=== PATIENT | female | born 1985 ===

== ENCOUNTER 2020-01-04 12:43 | Outpatient (REF) | payer OTHER, SELFPAY | END 2020-01-04 12:44 | disposition home or self-care (01) | LOC: HO.LAB 12:43 | PROVIDERS: Visit Provider Internal Medicine | DX: Z20.828 Contact with and (suspected) exposure to other viral communicable diseases (principal) | CPT/HCPCS: 87635 ==

== ENCOUNTER 2020-12-25 08:22 | Emergency (ER) | payer OTHER, SELFPAY ==
--- NOTE | ~2020-12-25 | US_ITS ---
EXAMINATION: US OBSTETRICAL ULTRASOUND CLINICAL INFORMATION: Bleeding and pain. Patient is 6 weeks . COMPARISON: None. LMP: 11/13/2020. Gestational age by maternal dates is 6 weeks 0 days. Estimated date of delivery by maternal dates is 08/20/2021. TECHNIQUE: Transabdominal first trimester OB ultrasound FINDINGS: The uterus is retroverted. There is a single intrauterine gestational sac with visible yolk sac, embryo/fetus, and cardiac activity. HR: 95 beats per minute. CRL (crown rump length): 0.15 to 0.2 cm. This is too small to calculate gestational age. Mean sac diameter suggests gestational age of approximately 6 weeks which agrees with the LMP. There is no significant subchorionic hemorrhage or hematoma. There is a small uterine fibroid measuring 7 x 5 x 9 mm anterior lower uterus. The right ovary measures 3.4 x 1.1 x 1.2 cm and is normal-appearing. The left ovary measures 4 x 1.9 x 3.5 cm. There are 3 left ovarian cysts. There is a 2.1 x 1.5 x 1.3 cm complex cyst peripheral vascularity probably representing a corpus luteum. There are simple 1.5 x 1.4 x 1.5 cm and 1.8 x 1.5 x 2.1 cm cysts. There is a small amount of fluid in the pelvis. US/US OB pelvic and transvaginal IMPRESSION: Intrauterine gestational sac, pole and yolk sac. [place]-rump length is too small to calculate gestational age.
[2020-12-25 08:28] VITALS: BP 111/66; PULSE 79; RESP 18; TEMP 36.8; O2SAT 100; BMI 28.6
[2020-12-25 08:51] LABS: Appearance Urine HAZY; Color Urine YELLOW; Glucose Urine UA NEG (NEG); Leukocyte Esterase Urine NEG (NEG); Nitrite Urine NEG (NEG); UACC Culture Trigger NO; Urine Blood 2+ (NEG); Urine Ketones NEG (NEG); Urine Protein NEG (NEG-TRACE)
--- NOTE | 2020-12-25 08:54 | ED_ITS ---
HPI - General Chief complaint: Vaginal Bleeding Stated complaint: 6WK PREG CRAMPING RED DISCHARGE Time Seen by Provider: 12/25/20 08:50 Source: patient Mode of arrival: ambulatory Limitations: no limitations History of Present Illness HPI Narrative: 35 y/o female who is 6 weeks presents to the ER with pelvic pain worse on the left side for the last 2 days along with some spotting that started yesterday. She also reports lower back pain. She is very nervous because she had a miscarriage at around 12 weeks gestation and required a D&C in the past. She also had intercourse 2 days ago and had some pain with that. She denies fevers. She denies passage of blood clots or tissue. She re ports her blood type is B positive. MD Complaint: abdominal pain and vaginal bleeding Onset (ago): day(s) (2) Pain Consistency: intermittent Location: pelvis Severity: moderate Severity scale (1-10): 5 Quality: Cramping and Aching Relieving factors: none Exacerbating factors: none Associated symptoms: vaginal bleeding and dyspareunia Vaginal discharge: none Vaginal bleeding: light Date of Last Menstrual Period: 11/13/20 Patient : Yes Number of Weeks : 6 OB History - Previous Pregnancies: miscarriage care: followed by OB Related Data : 4 Para: 2 Total number of abortions (spontaneous and elective): 1 Allergies Allergy/AdvReac Type Severity Reaction Status Date / Time No Known Allergies Allergy Verified 12/25/20 08:27 [No Known Allergies*] Review of Systems Review of Systems: Constitutional: No Fever, No Chills ENT/Mouth: No sore throat Cardiovascular: No Chest Pain, No SOB Gastrointestinal: No Nausea, No Vomiting, No Diarrhea, No abdominal Pain, No Hematochezia, No Melena Genitourinary: No Dysuria, No Urinary Frequency, + Hematuria, +vaginal spotting, +pelvic pain Musculoskeletal: No joint pain, No Myalgias Skin: No Skin Lesions, No rash Neuro: No Weakness, No Numbness, No Dizziness, No Headache Psych: + Anxiety/Panic, No Depression Heme/Lymph: No Bruising, No Lymphadenopathy Endocrine: No Polyuria, No Polydipsia PMFSH Past Medical History Medical History (Updated 12/25/20 @ 11:30 by BOYD Tapia) Patient denies medical problems : 4 Para: 2 Total number of abortions (spontaneous and elective): 1 Date of Last Menstrual Period: 11/13/20 Social History Social History Alcohol intake: never Patient Tobacco Use Status: Never used Tobacco Use of substances other than those prescribed or required for medical reasons: No Advance Directives: No Advance Directives Information Provided: Yes Patient : Yes Physical Exam Vital Signs: Vital Signs: Last Vital Signs Temp 98.3 F 12/25/20 08:28 Pulse 79 12/25/20 08:28 Resp 18 12/25/20 08:28 BP 111/66 12/25/20 08:28 Pulse Ox 100 12/25/20 08:28 Body Mass Index 28.6 Appearance: Alert. Oriented X3. No acute distress. Eyes: Pupils equal, round and reactive to light. ENT: Pharynx normal. Neck: Normal inspection. Neck supple. CVS: Normal heart rate and rhythm. Pulses normal. Respiratory: No respiratory distress. Breath sounds normal. Abdomen: Soft with mild lower abdominal, suprapubic tenderness more on the left than the right. No guarding or rebound. Normal bowel sounds. Pelvic exam deferred. Skin: Skin warm and dry. Normal skin color. Normal skin turgor. No rashes. Extremities: No lower extremity edema. Neuro: Oriented X 3. No motor deficit. No sensory deficit. Course Course Course Narrative: 35-year-old female who is currently 6 weeks presents to the ER with some pelvic pain, back pain, and vaginal spotting. No passage of blood clots or tissue. She is currently having minimal pain but reports it is more on the left side than the right. She has history of miscarriage in the past. She is declining pelvic exam at this time, she is worried about making any bleeding worse. She is agreeable to pelvic ultrasound however. Concern for possible ectopic . Will check serum hCG and pelvic ultrasound. No active bleeding right now. Reevaluation(s) Reevaluation #1: Beta hCG is 13,000. Pelvic ultrasound showing intrauterine . She is wanting to leave. We discussed the possibility of a threatened miscarriage in need for follow-up with her OB. She expressed understanding and will go to her OB tomorrow. Recommended repeating her hCG levels. Patient stable for discharge with close outpatient follow-up. MDM - OB/Uterine Contractions Lab Data Result diagrams: 12/25/20 09:41 12/25/20 09:41 Labs: Lab Results 12/25/20 12/25/20 12/25/20 Range/Units 08:36 09:41 09:41 WBC 5.7 (4.8-10.8) X10*3/uL RBC 4.78 (4.20-5.50) X10*6/uL Hgb 12.2 (12.0-16.0) g/dl Hct 37.7 (37-47) % MCV 78.9 L (80-98) fL MCH 25.5 L (27.0-33.0) pg MCHC 32.4 (31.0-35.0) g/dl RDW 12.6 (11.0-16.0) % Plt Count 274 (160-400) X10*3/uL MPV 11.0 (9.4-12.3) fL Immature Gran % (Auto) 0.5 H (0.0-0.4) % Neut % (Auto) 61.5 (45-73) % Lymph % (Auto) 29.2 (20-40) % [place] % (Auto) 6.1 (2-11) % Eos % (Auto) 2.3 (0-4) % Baso % (Auto) 0.4 (0-2) % Lymph # (Auto) 1.7 (1.2-4.9) X10*3/uL [place] # (Auto) 0.4 (0.1-1.2) X10*3/uL Eos # (Auto) 0.1 (0.0-0.4) X10*3/uL Baso # (Auto) 0.0 (0.0-0.2) X10*3/uL Abs Immat Gran (auto) 0.03 (0.00-0.03) X10*3/uL Absolute Neuts (auto) 3.5 (2.0-8.3) X10*3/uL Absolute Nucleated RBC 0.000 (0.0-0.012) X10*3/uL Nucleated RBC % (auto) 0.0 (0.0-0.2) /100WBC Sodium 137 (135-145) mmol/L Potassium 4.4 (3.3-5.1) mmol/L Chloride 107 (96-108) mmol/L Carbon Dioxide 24 (22-29) mmol/L Anion Gap 10 L (12-20) BUN 10 (9-16) mg/dL Creatinine 0.73 (0.5-1.4) mg/dL Estim Creat Clear Calc 111.0 Estimated GFR > 60 Random Glucose 92 (60-115) mg/dL Calcium 9.2 (8.4-10.2) mg/dL Beta HCG, Quant 64596 mIU/mL Urine Color YELLOW Urine Appearance HAZY Urine pH 6.0 (5.0-8.0) Ur Specific [place] 1.020 (1.005-1.025) Urine Protein NEG (NEG-TRACE) MG/DL Urine Glucose (UA) NEG (NEG) MG/DL Urine Ketones NEG (NEG) MG/DL Urine Blood 2+ H (NEG) Urine Nitrite NEG (NEG) Ur Leukocyte Esterase NEG (NEG) Urine RBC 15-29 H (0) /HPF Urine WBC 1-4 (0-4) /HPF Ur Squamous Epith Cells 1+ /LPF Urine Bacteria TRACE /LPF Urine Mucus 2+ /LPF Urine Yeast 1+ /HPF Blood Type 12/25/20 Range/Units 09:41 WBC (4.8-10.8) X10*3/uL RBC (4.20-5.50) X10*6/uL Hgb (12.0-16.0) g/dl Hct (37-47) % MCV (80-98) fL MCH (27.0-33.0) pg MCHC (31.0-35.0) g/dl RDW (11.0-16.0) % Plt Count (160-400) X10*3/uL MPV (9.4-12.3) fL Immature Gran % (Auto) (0.0-0.4) % Neut % (Auto) (45-73) % Lymph % (Auto) (20-40) % [place] % (Auto) (2-11) % Eos % (Auto) (0-4) % Baso % (Auto) (0-2) % Lymph # (Auto) (1.2-4.9) X10*3/uL [place] # (Auto) (0.1-1.2) X10*3/uL Eos # (Auto) (0.0-0.4) X10*3/uL Baso # (Auto) (0.0-0.2) X10*3/uL Abs Immat Gran (auto) (0.00-0.03) X10*3/uL Absolute Neuts (auto) (2.0-8.3) X10*3/uL Absolute Nucleated RBC (0.0-0.012) X10*3/uL Nucleated RBC % (auto) (0.0-0.2) /100WBC Sodium (135-145) mmol/L Potassium (3.3-5.1) mmol/L Chloride (96-108) mmol/L Carbon Dioxide (22-29) mmol/L Anion Gap (12-20) BUN (9-16) mg/dL Creatinine (0.5-1.4) mg/dL Estim Creat Clear Calc Estimated GFR Random Glucose (60-115) mg/dL Calcium (8.4-10.2) mg/dL Beta HCG, Quant mIU/mL Urine Color Urine Appearance Urine pH (5.0-8.0) Ur Specific [place] (1.005-1.025) Urine Protein (NEG-TRACE) MG/DL Urine Glucose (UA) (NEG) MG/DL Urine Ketones (NEG) MG/DL Urine Blood (NEG) Urine Nitrite (NEG) Ur Leukocyte Esterase (NEG) Urine RBC (0) /HPF Urine WBC (0-4) /HPF Ur Squamous Epith Cells /LPF Urine Bacteria /LPF Urine Mucus /LPF Urine Yeast /HPF Blood Type B Positive Procedures Perimortem Number of Weeks : 6 Discharge Plan Discharge Clinical Impression: Threatened Patient Disposition: Home, Self-Care Instructions: Threatened Miscarriage (ED) Additional Instructions: Your ultrasound today showed a gestational sac within the uterus. Because your are bleeding and having pain there still is a possibility that you are having a miscarriage. This could also be normal 1st trimester bleeding. It is important that you follow-up with your OB. Your hormone today was 13,661. This number needs to be trended in the next 48 hours. Your OB can do this for you. No sexual intercourse. If you develop worsening symptoms call 911 or come back to the ER for further evaluation. Stand Alone Forms: Work/School Release Interventions: ED Discharge Assessment Last Done: 12/25/20 11:42 Discharge Date/Time: 12/25/20 11:42
[2020-12-25 09:01] LABS: Bacteria Urine TRACE /LPF
[2020-12-25 09:02] LABS: Squamous Epithelial Cell Urine 1+ /LPF
[2020-12-25 09:03] LABS: Mucus Urine 2+ /LPF
[2020-12-25 09:50] LABS: MANUAL DIFF FLAG NO
[2020-12-25 09:57] LABS: Basophils Percent Auto 0.4 % (0-2); Eosinophils Absolute Auto 0.1 X10*3/uL (0.0-0.4); Eosinophils Percent Auto 2.3 % (0-4); Hematocrit 37.7 % (37-47); Hemoglobin 12.2 g/dl (12.0-16.0); Imm Gran Abs Auto 0.03 X10*3/uL (0.00-0.03); Imm Gran Pct Auto 0.5 % (0.0-0.4); Lymphocytes Absolute Auto 1.7 X10*3/uL (1.2-4.9); Lymphocytes Percent Auto 29.2 % (20-40); Mean Corpuscular HGB Conc 32.4 g/dl (31.0-35.0); Mean Corpuscular Hemoglobin 25.5 pg (27.0-33.0); Mean Corpuscular Volume 78.9 fL (80-98); Monocytes Absolute Auto 0.4 X10*3/uL (0.1-1.2); Monocytes Percent Auto 6.1 % (2-11); Neutrophils Absolute Auto 3.5 X10*3/uL (2.0-8.3); Neutrophils Percent Auto 61.5 % (45-73); Platelet Count 274 X10*3/uL (160-400); Red Blood Count 4.78 X10*6/uL (4.20-5.50); Red Cell Distribution Width 12.6 % (11.0-16.0); White Blood Count 5.7 X10*3/uL (4.8-10.8)
[2020-12-25 10:19] LABS: Anion Gap 10 (12-20); Blood Urea Nitrogen 10 mg/dL (9-16); Calcium 9.2 mg/dL (8.4-10.2); Carbon Dioxide 24 mmol/L (22-29); Chloride 107 mmol/L (96-108); Estimated Glomerular Filt Rate > 60; Glucose Random 92 mg/dL (60-115); Potassium 4.4 mmol/L (3.3-5.1); Sodium 137 mmol/L (135-145)
[2020-12-25 10:27] LABS: HCG Quantitative 13661 mIU/mL
== END 2020-12-25 11:42 | disposition home or self-care (01) ==
PROVIDERS: Physician Assistant; Emergency Provider Emergency Medicine; PCP Hospitalist
DX: O20.0 Threatened abortion (principal); O09.291 Supervision of pregnancy with other poor reproductive or obstetric history, first trimester; O09.521 Supervision of elderly multigravida, first trimester; Z3A.01 Less than 8 weeks gestation of pregnancy
CPT/HCPCS: 36415; 76801; 76817; 80048; 81001; 84702; 85025; 86900; 86901; 99284

== ENCOUNTER 2021-04-06 10:18 | Outpatient (REF) | payer OTHER, SELFPAY ==
[2021-04-06 11:40] LABS: COVID-19 Test Positive (Negative)
== END 2021-04-06 10:19 | disposition home or self-care (01) ==
LOC: HO.LAB 10:18
PROVIDERS: Visit Provider Internal Medicine
DX: Z20.822 Contact with and (suspected) exposure to COVID-19 (principal)
CPT/HCPCS: 87635; C9803

== ENCOUNTER 2022-10-30 18:56 | Emergency (ER) | payer OTHER, SELFPAY ==
[2022-10-30 19:18] VITALS: BP 110/71; PULSE 74; RESP 17; TEMP 36.9; O2SAT 99; BMI 30.3
--- NOTE | 2022-10-30 19:21 | ED_ITS ---
HPI - General Adult General Chief complaint: Abdominal Pain Stated complaint: severe abd pain Related Data Allergies Allergy/AdvReac Type Severity Reaction Status Date / Time No Known Allergies Allergy Verified 10/30/22 19:18 [No Known Allergies*] [facility], [facility] Past Medical History Medical History (Updated 03/03/23 @ 01:55 by Sean Landrum) Patient denies medical problems Social History Social History Alcohol intake: never Patient Tobacco Use Status: Never used Tobacco Advance Directives: No Advance Directives Information Provided: No Physical Exam ED Vital Signs: Vital Signs - 24 hr 10/30/22 19:18 Temperature 98.5 F Pulse Rate 74 Respiratory Rate 17 Blood Pressure 110/71 Pulse Oximetry 99 Oxygen Delivery Method Room Air BMI result Body Mass Index 30.3 Course Course Course Narrative: RMNaldo- 37-year-old female presents for evaluation of severe lower abdominal pain that started about an hour prior to arrival. She has nausea without vomiting. Denies any urinary complaints. Denies any black or bloody stool. She reports the pain is in the area of the previous scar. She is quite uncomfortable. Plan for labs, UA, , CT scan Medical Decision Making Lab Data 10/30/22 19:32 10/30/22 19:32 Labs: Lab Results 10/30/22 10/30/22 Range/Units 19:32 20:56 WBC 8.0 (4.8-10.8) X10*3/uL RBC 4.92 (4.20-5.50) X10*6/uL Hgb 11.6 L (12.0-16.0) g/dl Hct 36.5 L (37.0-47.0) % MCV 74.2 L (80.0-98.0) fL MCH 23.6 L (27.0-33.0) pg MCHC 31.8 (31.0-35.0) g/dl RDW 14.0 (11.0-16.0) % Plt Count 336 (160-400) X10*3/uL MPV 11.5 (9.4-12.3) fL Immature Gran % (Auto) 0.4 (0.0-0.4) % Neut % (Auto) 59.2 (45-73) % Lymph % (Auto) 32.5 (20-40) % [place] % (Auto) 5.1 (2-11) % Eos % (Auto) 2.4 (0-4) % Baso % (Auto) 0.4 (0-2) % Lymph # (Auto) 2.6 (1.2-4.9) X10*3/uL [place] # (Auto) 0.4 (0.1-1.2) X10*3/uL Eos # (Auto) 0.2 (0.0-0.4) X10*3/uL Baso # (Auto) 0.0 (0.0-0.2) X10*3/uL Abs Immat Gran (auto) 0.03 (0.00-0.03) X10*3/uL Absolute Neuts (auto) 4.8 (2.0-8.3) x10*3/uL Absolute Nucleated RBC 0.000 (0.0-0.012) X10*3/uL Nucleated RBC % (auto) 0.0 (0.0-0.2) /100WBC Sodium 140 (135-145) mmol/L Potassium 3.8 (3.3-5.1) mmol/L Chloride 111 H (96-108) mmol/L Carbon Dioxide 21 L (22-29) mmol/L Anion Gap 12 (12-20) BUN 16 (9-16) mg/dL Creatinine 0.87 (0.5-1.4) mg/dL Estim Creat Clear Calc 93.9 Estimated GFR > 60 Random Glucose 111 (60-115) mg/dL Lactic Acid 1.0 (0.5-2.0) mmol/L Calcium 9.7 (8.4-10.2) mg/dL Total Bilirubin 0.1 (0.0-1.0) mg/dL AST 14 (5-31) U/L ALT 12 (0-31) U/L Alkaline Phosphatase 57 (39-117) U/L Total Protein 7.6 (6.5-8.0) g/dL Albumin 4.4 (3.5-5.0) g/dL Lipase 33 (8-78) U/L Urine Color Yellow Urine Appearance Clear Urine pH 8.5 (5.0-9.0) Ur Specific [place] 1.020 (1.005-1.025) Urine Protein Negative (Neg-Trace) mg/dL Urine Glucose (UA) Negative (Negative) mg/dL Urine Ketones Negative (Negative) mg/dL Urine Blood Negative (Negative) Urine Nitrite Negative (Negative) Ur Leukocyte Esterase Negative (Negative) Urine RBC 6-10 H (0-2) /HPF Urine WBC 0-5 (0-5) /HPF Ur Squamous Epith Cells 0-2 (0-2) /HPF Urine Bacteria None Seen (None Seen) Hyaline Casts 0-2 (0-2) /LPF Urine Test NEGATIVE (NEGATIVE) Discharge Plan Discharge Clinical Impression: Abdominal pain Patient Disposition: Elopement Discharge Date/Time: 10/30/22 21:32
[2022-10-30 19:37] LABS: MANUAL DIFF FLAG NO
[2022-10-30 19:49] LABS: Basophils Percent Auto 0.4 % (0-2); Eosinophils Absolute Auto 0.2 X10*3/uL (0.0-0.4); Eosinophils Percent Auto 2.4 % (0-4); Hematocrit 36.5 % (37.0-47.0); Hemoglobin 11.6 g/dl (12.0-16.0); Imm Gran Abs Auto 0.03 X10*3/uL (0.00-0.03); Imm Gran Pct Auto 0.4 % (0.0-0.4); Lymphocytes Absolute Auto 2.6 X10*3/uL (1.2-4.9); Lymphocytes Percent Auto 32.5 % (20-40); Mean Corpuscular HGB Conc 31.8 g/dl (31.0-35.0); Mean Corpuscular Hemoglobin 23.6 pg (27.0-33.0); Mean Corpuscular Volume 74.2 fL (80.0-98.0); Mean Platelet Volume 11.5 fL (9.4-12.3); Monocytes Absolute Auto 0.4 X10*3/uL (0.1-1.2); Monocytes Percent Auto 5.1 % (2-11); Neutrophils Absolute Auto 4.8 x10*3/uL (2.0-8.3); Neutrophils Percent Auto 59.2 % (45-73); Platelet Count 336 X10*3/uL (160-400); Red Blood Count 4.92 X10*6/uL (4.20-5.50)
[2022-10-30 19:55] LABS: Alanine Aminotransferase 12 U/L (0-31); Albumin Level 4.4 g/dL (3.5-5.0); Alkaline Phosphatase 57 U/L (39-117); Anion Gap 12 (12-20); Aspartate Amino Transferase 14 U/L (5-31); Bilirubin Total 0.1 mg/dL (0.0-1.0); Blood Urea Nitrogen 16 mg/dL (9-16); Calcium 9.7 mg/dL (8.4-10.2); Carbon Dioxide 21 mmol/L (22-29); Chloride 111 mmol/L (96-108); Creatinine Clr Calc Pharmacy 93.9; Estimated Glomerular Filt Rate > 60; Glucose Random 111 mg/dL (60-115); Lipase 33 U/L (8-78); Potassium 3.8 mmol/L (3.3-5.1); Sodium 140 mmol/L (135-145); Total Protein 7.6 g/dL (6.5-8.0)
[2022-10-30 21:16] LABS: Appearance Urine Clear; Color Urine Yellow; Glucose Urine UA Negative (Negative); Leukocyte Esterase Urine Negative (Negative); Nitrite Urine Negative (Negative); PH 8.5 (5.0-9.0); Urine Blood Negative (Negative); Urine Ketones Negative (Negative); Urine Protein Negative (Neg-Trace)
[2022-10-30 21:17] LABS: UPreg QC Valid YES; Urine Pregnancy NEGATIVE (NEGATIVE)
--- NOTE | 2022-10-30 21:20 | PC.NURSE ---
Patient states that she has to leave and that her pain is a 0/10 at this time. VS taken prior to patient elopement, patient cooperative with treatment, this RN explained that CT scan was ordered, patient politely declined, stating the need to return home to her children. Vital signs stable and patient ambulated with steady gait to doors.
[2022-10-30 21:22] VITALS: BP 103/78; PULSE 72; RESP 17; TEMP 36.7; O2SAT 99
[2022-10-30 21:52] LABS: Bacteria Urine None Seen (None Seen); Hyaline Casts Urine 0-2 /LPF (0-2); Squamous Epithelial Cell Urine 0-2 /HPF (0-2); WBC Urine 0-5 /HPF (0-5)
== END 2022-10-30 21:32 | disposition left against medical advice (07) ==
PROVIDERS: Physician Assistant; Emergency Provider Emergency Medicine; PCP Hospitalist
DX: R10.30 Lower abdominal pain, unspecified (principal)
CPT/HCPCS: 36415; 80053; 81001; 81025; 83605; 83690; 85025; 99283

== ENCOUNTER 2023-04-27 13:15 | Outpatient (AMB) | payer OTHER, SELFPAY ==
--- NOTE | 2023-04-27 13:35 | MHC.OFFVIS ---
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 She is known to our service and has a left-sided carpal tunnel release performed at [facility] last year. She reports very good relief of symptoms with her left-sided carpal tunnel release, and has which she describes as a full return to strength of her left hand. She states that she continues to have pain in her right hand that shoots up the ventral surface of her right arm. She states that her right hand is also beginning to get subjectively weaker. She reports that ?shaking out? or moving around her hand helps to alleviate the numbness/tingling that she feels in her hand. Exam: On exam the patient has 4/5 strength with right-sided hand litigation specialist and 5/5 strength elsewhere. She reports a dull/decreased feeling in her right hand when compared to her left. The rest of her sensation is intact. (+) right-sided Phalen's, (+) right-sided Tinel's. Plan: Eliu was evaluated alongside Dr. Schumacher this afternoon. He has previously evaluated the patient and knows her from his previous practice. He offered her a right-sided carpal tunnel release surgery to help alleviate her numbness/tingling and ideally increase functionality of her right hand. She has been tentatively scheduled for 06/16/23. Eliu was given risk and benefits of surgery including but not limited to infection, hematoma, nerve injury, weakness, and persistent pain, as well as the option to continue with conservative treatment and patient wishes to proceed with surgery. She is aware she should stop NSAIDs 7 days prior to surgery. All questions were answered to the best of our ability. If there is anything about this patients medical history that we have overlooked or concerns you have about us proceeding with surgery we would appreciate any input you can offer. Total amount of time spent in this visit was 25 minutes in discussion of symptoms, MRI imaging results and subsequent plan of care James Schumacher MD,PhD [facility] Coding Level of Care Code Est Pt Level 2 (06060) Diagnoses Carpal tunnel syndrome of right wrist G56.01
== END 2023-04-27 14:26 | disposition home or self-care (01) ==
PROVIDERS: PCP Hospitalist; Visit Provider Physician Assistant
DX: G56.01 Carpal tunnel syndrome, right upper limb (principal)
CPT/HCPCS: 99212

== ENCOUNTER → 2023-04-27 13:15 | Outpatient (BNVA) | payer OTHER, SELFPAY | PROVIDERS: PCP Hospitalist; Visit Provider Physician Assistant | DX: G56.01 Carpal tunnel syndrome, right upper limb (principal) | CPT/HCPCS: 99212 ==

== ENCOUNTER 2023-08-04 12:18 | Day surgery (SDC) | payer OTHER, SELFPAY ==
--- NOTE | 2023-08-02 13:49 | HO.ANESPROP2 ---
Documented by User: Wen Reyna NP 08/02/23 13:50 HPI - Anesthesia Eval Consult details Narrative: 38yo F for Right Carpal Tunnel Release PMFSH Active Problems Active Problems: All Active Problems Carpal tunnel syndrome of right wrist (Acute) Past Medical History Medical History Patient denies medical problems Surgical History Surgical History History of Hx of carpal tunnel repair Social History Social History Alcohol intake: never Patient Tobacco Use Status: Current everyday Tobacco user Date Education Initiated: 08/04/23 Use of substances other than those prescribed or required for medical reasons: No Are you DNR?: No Advance Directives: No Advance Directives Information Provided: Yes Meds Allergies Allergy/AdvReac Type Severity Reaction Status Date / Time No Known Allergies Allergy Verified 10/30/22 19:18 [No Known Allergies*] Home Medications ?Medication ?Instructions ?Recorded ?Confirmed ?Last Taken ?Type omeprazole 20 mg capsule,delayed 20 mg PO DAILY 08/04/23 08/04/23 Unknown History release Assessment and Plan Assessment Anesthesia Assessment: Chart Reviewed Documented by User: Sonia Vallejo MD 08/04/23 13:30 PMFSH Past Medical History Medical History Patient denies medical problems Family History Family history of problems with anesthesia: No Surgical History Surgical History History of Hx of carpal tunnel repair History of Problems with Anesthesia: No Social History Social History Alcohol intake: never Patient Tobacco Use Status: Current everyday Tobacco user Date Education Initiated: 08/04/23 Use of substances other than those prescribed or required for medical reasons: No Are you DNR?: No Advance Directives: No Advance Directives Information Provided: Yes Meds Allergies Allergy/AdvReac Type Severity Reaction Status Date / Time No Known Allergies Allergy Verified 10/30/22 19:18 [No Known Allergies*] Home Medications ?Medication ?Instructions ?Recorded ?Confirmed ?Last Taken ?Type omeprazole 20 mg capsule,delayed 20 mg PO DAILY 08/04/23 08/04/23 Unknown History release Exam Airway Mallampati Class: II TM Dist: >3cm Neck ROM: Full Heart: rrr Lungs: cta Assessment and Plan Assessment Anesthesia Assessment: Anesthesia Plan Discussed Final Anesthetic Review Family History of Problems with Anesthesia: No History of Problems with Anesthesia: No NPO: Yes ASA Class: II (gerd) Final Preanesthetic Review: No Changes in Pt Med Stat, Meds/Allgs Chart Reviewed and Consent Obtained/Reviewed Patient Risk: Low Procedure Risk: Low Anesthetic Plan Anesthetic Plan: MAC: Disposition: Standard PACU
[2023-08-04] VITALS (7 sets, daily range): BP systolic 100–111; BP diastolic 56–74; PULSE 63–84; RESP 12–16; TEMP 36.1–37.3; O2SAT 97–99; BMI 30.4
--- NOTE | 2023-08-04 07:08 | MHC.SHP ---
Pre-Procedural Eval Section A - 24 Hr Update-Section A only Date of Service: 08/04/23 The patient is an INPATIENT: No Changes since office visit: No Cold of Flu in the past 2 weeks, No New Medical Problems, No Changes in Medication and No Patient answered all questions The patient has been examined within 24 hours of the surgical procedure. The History & Physical has been completed within 30 days and I have reviewed it.: No Section B - Complete if H&P > 30 days Chief Complaint: Carpal tunnel syndrome, right upper limb Allergies: Allergies Allergy/AdvReac Type Severity Reaction Status Date / Time No Known Allergies Allergy Verified 10/30/22 19:18 [No Known Allergies*] Review of Systems Sugical H&P ROS: Negative: Constitution, Cardiovascular, Respiratory, Neurological, Psychiatric, Hem-Onc, Allergic/Immunologic, Gastrointestinal, Genitourinary, Musculoskeletal, Integumentary, Endocrine and Eyes/Ears/Nose/Throat Exam Surgical H&P Exam: Not Evaluated: HEENT, Not Evaluated: Heart, Not Evaluated: Lungs, Not Evaluated: Extremities, Not Evaluated: Abdomen, Not Evaluated: Skin and Not Evaluated: Neurological Plan Diagnosis/Plan: Unchanged right carpal tunnel release Time Spent With Patient Time: Total time managing care of this patient today _5___ minutes.
[2023-08-04 12:57] LABS: UPreg QC Valid YES; Urine Pregnancy NEGATIVE (NEGATIVE)
[2023-08-04] MEDS: Lactated Ringers 1,000 ML 100 ML IVCONT (12:59)
[2023-08-04] MEDS: methocarbamoL 750 MG TABLET PO (13:03)
[2023-08-04] MEDS: Gabapentin 300 MG CAPSULE PO (13:03)
--- NOTE | 2023-08-04 14:42 | PM.DS ---
DS: Providers Provider Date of Service: 09/27/23 Primary care physician: Ephraim Gudino MD DS: Summary Time Attestation Discharge Coordination Time (in mins): 10 Quality: Safe Use of Opioids Does Pt have an Active Cancer Diagnosis on the Problem List?: No Quality: Stroke Does the patient have a stroke diagnosis?: No Physical Exam Vital Signs: Vital Signs: Last Vital Signs Temp 99.1 F 08/04/23 12:47 Pulse 76 08/04/23 12:47 Resp 16 08/04/23 12:47 BP 100/61 08/04/23 12:47 Pulse Ox 98 08/04/23 12:47 O2 Del Method Room Air 08/04/23 12:47 BMI result Body Mass Index 30.4 DS: Data Data Completed and Pending Labs on day of discharge: Laboratory Results - last 24 hr 08/04/23 12:31 Urine Test NEGATIVE Discharge Plan Discharge Patient Disposition: Home, Self-Care Referrals: Ephraim Gudino MD [Primary Care Provider] - 1 Week Discharge Medications: New tramadol 50 mg tablet 50 mg PO Q8H PRN (Reason: pain) Qty: 21 0RF No Action omeprazole 20 mg capsule,delayed release(DR/EC) 20 mg PO DAILY Discharge Orders: Discharge Order (Routine); Ordered 08/04/23 Ordered By: James Cardoza Diet: Advance to usual diet Activity on Discharge: As tolerated Activity Restrictions/Additional Instructions: You may remove your eva wrap on post op day 3, as well as the dressing underneath it There are sutures in your wound, and you will need these removed 10-14 days after surgery. Please call the office to arrange this visit, You can use your hand as much as you like, however, please avoid straining or heavy lifting It will help swelling in your hand to keep it elevated when you are not using it. You can shower on post op day 1, but please keep wound dry You have been prescribed a short course of tramadol to utilize for pain as needed after surgery You can drive when you feel comfortable and are off narcotics If you experience any signs of infection such as fever, chills or redness/discharge from your wound,please call office right away Print Language: [place] Discharge Date/Time: 08/04/23 15:55
--- NOTE | 2023-08-04 14:53 | W.PM.OPN ---
Operative Note Operative Note Date of Service: 08/04/23 Narrative: Diagnosis: Right carpal tunnel syndrome Procedure: Right median nerve release Surgeon: Stanley Schumacher MD PhD Description procedure: This patient Is suffering from a right carpal tunnel syndrome. The patient was offered a decompression of the median nerve. The procedure complications were explained. The patient was consented. She was brought to the operating room, where moderate sedation was applied. Prepping and draping was done followed by time-out. Marcaine was injected into the mid volar region. A midvolar incision was made. The ligamentum carpi transversum was opened sharply until the median nerve became visible. A Metzenbaum scissor was used to decompress the median nerve proximally and distally over its trajectory. Significant compression was present. Hemostasis was done. The incision was closed with 3 interrupted sutures. A compressive LYNDSEY wrap was used for hemostasis. All sponge and needle counts were correct. Patient was transported to the recovery room. Anesthesia: Moderate sedation and local anesthetic Blood loss: Minimal Complications: None Disposition: Discharge home
== END 2023-08-04 15:55 | disposition home or self-care (01) ==
PROVIDERS: Nurse Practitioner; PCP Hospitalist; Visit Provider Neurological Surgery
PROC: (CPT 64721; principal; 2023-08-04 16:40)
DX: G56.01 Carpal tunnel syndrome, right upper limb (principal); R20.0 Anesthesia of skin; R20.2 Paresthesia of skin; Z98.890 Other specified postprocedural states; Z72.0 Tobacco use; Z79.899 Other long term (current) drug therapy
CPT/HCPCS: 64721; 81025; J0131; J0690; J2250; J2704; J3010

== ENCOUNTER → 2023-08-04 12:18 | Outpatient (BNV) | payer OTHER, SELFPAY | PROVIDERS: PCP Hospitalist; Visit Provider Neurological Surgery | DX: G56.01 Carpal tunnel syndrome, right upper limb (principal) | CPT/HCPCS: 64721; 99499 ==

== ENCOUNTER 2023-08-18 10:11 | Outpatient (AMB) | payer OTHER, SELFPAY ==
--- NOTE | 2023-08-18 10:15 | A.SPINEOV_ITS ---
Intake Visit Reasons: suture removal Intake Note: Ms. Guardado is here today to have her suture removal. Academic Support Director Required: No Allergies No Known Allergies [No Known Allergies*] Allergy (Verified 08/18/23 10:26) Assessment & Plan Assessment & Plan (1) S/P carpal tunnel release: Code(s): Z98.890 - Other specified postprocedural states Category: Surgical Plan Eliu comes in today for suture removal she is s/p right-sided carpal tunnel release on 08/03. She states she has been doing well since surgery, however still has quite a bit of inflammation around the incision site and some intermittent pains that shoot into her right thumb. Overall, she does report she feels better than she did pre-operatively, and is hopeful for his similar recovery to the one she had for her left hand. The incision site was cleansed with iodine and alcohol swabs. Three simple interrupted sutures were removed overlying the incision site. The patient tolerated the procedure well. I would like to follow up with Eliu again in 6 weeks to ensure she continues to heal well from his surgery. James Schumacher MD,PhD [facility] Coding Level of Care Code Global (01585) Diagnoses S/P carpal tunnel release Z98.890
== END 2023-08-18 10:36 | disposition home or self-care (01) ==
PROVIDERS: PCP Hospitalist; Visit Provider Physician Assistant
DX: Z98.890 Other specified postprocedural states (principal)
CPT/HCPCS: 99024

== ENCOUNTER → 2023-08-18 10:11 | Outpatient (BNVA) | payer OTHER, SELFPAY | PROVIDERS: PCP Hospitalist; Visit Provider Physician Assistant | DX: Z98.890 Other specified postprocedural states (principal) | CPT/HCPCS: 99212 ==

== ENCOUNTER 2023-09-29 10:38 | Outpatient (AMB) | payer OTHER, SELFPAY ==
--- NOTE | 2023-09-29 11:05 | HO.SPINEOV ---
Intake Visit Reasons: 2nd post op Intake Note: Ms. Guardado, 38 y/l female, is her today for her 2nd post-op visit. 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 She states she also continues to have quite a bit of pain under the incision site. She denies any swelling or redness near the area. She states that attempting dexterity with her right hand exacerbates her pain, and that resting the hand helps to alleviate it. On examination she is able to curl her fingers to the distal palmar crease without issue. Her hands appear similar in size. The tissue is soft and nontender when palpated. The incision site is closed and well healed. I would like to send Eliu for a course of physical therapy for dexterity and strength training on the right. I also sent in a methylprednisone Dosepak to help with inflammation and ideally symptom reduction. We will follow up with our office after her physical therapy. James Schumacher MD,PhD [facility] Orders: Orders PT Evaluation and Treatment Today Z98.890 - Other specified postprocedural states Medications: New methylprednisolone (Methylpred DP) PO PER PKG DIR for 6 days 21 ea 0RF Coding Level of Care Code Global (72073) Diagnoses S/P carpal tunnel release Z98.890
== END 2023-09-29 11:06 | disposition home or self-care (01) ==
PROVIDERS: PCP Hospitalist; Visit Provider Physician Assistant
DX: Z98.890 Other specified postprocedural states (principal)
CPT/HCPCS: 99024

== ENCOUNTER → 2023-09-29 10:38 | Outpatient (BNVA) | payer OTHER, SELFPAY | PROVIDERS: PCP Hospitalist; Visit Provider Physician Assistant | DX: Z48.89 Encounter for other specified surgical aftercare (principal); Z98.890 Other specified postprocedural states | CPT/HCPCS: 99212 ==

== ENCOUNTER 2023-11-09 13:04 | Outpatient (RCR) | payer OTHER, SELFPAY ==
--- NOTE | 2023-11-18 09:11 | MHC.OT.EP ---
[address] [phone] Occupational Therapy Plan of Care Patient Name: Eliu Guardado Date of Evaluation: 11/09/23 Diagnosis: Pain Location: volar side of R hand and wrist Pain Score: 8 Pain Scale Used: Numeric (0 - 10) Aggravating Factors: Any AROM Alleviating Factors: Pt reports taken naproxen as prescribed by MD for a mos. w/ no results Assessment: Pt is a 38 yr. old R hand dominant female who had CTR on her R hand in July of this year. She reports since the surgery an increase in inflammation, sensitivity (scar), and tightness in her R hand. Pt had the same surgery on her L hand 2+ yrs ago w/out any side effects. She currently lives w/ her and children ages 7,5, &3. Pt has been referred to skilled OT Therapy for scar management, pain free AROM of her R hand, strength, and increased functional use of her R / dominant hand Frequency and Duration: The patient will be seen 2 xs a week fro 4 weeks Short Term Goals: Pt will adhere to HEP Pt will adhere to scar management techniques pt will decrease fig. 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 Thank you once again for your referral.
== END 2023-12-12 16:00 | disposition home or self-care (01) ==
LOC: HO.OT 13:04
PROVIDERS: PCP Hospitalist; Visit Provider Physician Assistant
DX: Z98.890 Other specified postprocedural states (principal)
CPT/HCPCS: 97035; 97140; 97165; 97535